=== PATIENT | female | born 1955 | race Caucasian/White ===

== ENCOUNTER 2017-04-12 05:27 | Inpatient (IN) | payer OTHER ==
[2017-03-29 11:06] VITALS: BMI 34.0
--- NOTE | 2017-03-29 11:42 | PAT Medication Instructions ---
Service Date Mar 29, 2017. Current Home Medication List Aspirin (Aspirin Ec), 162 MG PO QAM Cranberry (Vaccinium Macrocarp (Cranberry), 15,000 MG PO QAM Tqgcqtcvgdj-Usuuukegmkk-Hsqunl (Move Free Joint Health Ad), 1 TAB PO QAM Imipramine (Tofranil), 25 MG PO QAM Multivitamin (Multivitamin), 1 TAB PO QAM Naproxen (Aleve), 220 MG PO QAM Pravastatin (Pravachol ), 40 MG PO QAM Valsartan/Hctz (Diovan Hct 320MG/12.5MG), 1 TAB PO QAM Medication Instructions For Your Scheduled Surgery - Check with surgeon for instructions: Naproxen (Aleve), 220 MG PO QAM Aspirin (Aspirin Ec), 162 MG PO QAM - Hold the following medications starting 03/30/17: Cranberry (Vaccinium Macrocarp (Cranberry), 15,000 MG PO QAM Zvbguacdwno-Jgawkyesdga-Ydcizo (Move Free Joint Health Ad), 1 TAB PO QAM - Hold the following medications the morning of surgery: Valsartan/Hctz (Diovan Hct 320MG/12.5MG), 1 TAB PO QAM Multivitamin (Multivitamin), 1 TAB PO QAM - Take the following medications the morning of surgery with a sip of water: Imipramine (Tofranil), 25 MG PO QAM Pravastatin (Pravachol ), 40 MG PO QAM If you have any questions please call us at [phone] or [phone] or [phone]
[2017-03-29 12:07] LABS: BASO % 0.5 %; BASO ABS # 0.03 K/uL (0-0.2); COMPLETE YES; EOS % 1.7 %; HEMATOCRIT 43.6 % (37-47); IG% 0.2 %; LYMPH % 30.2 %; LYMPH ABS # 1.98 K/uL (1.2-3.4); MEAN CORPUSCULAR HEMOGLOBIN 30.4 pg (25-34); MEAN CORPUSCULAR HGB CONC 34.2 g/dl (32-36); NEUT % 60.4 %; PLATELET COUNT 307 K/uL (130-400); WHITE BLOOD COUNT 6.56 K/uL (4.8-10.8)
[2017-03-29 12:09] LABS: URINE APPEARANCE CLEAR (CLEAR); URINE BILIRUBIN NEG (NEG); URINE COLOR YELLOW; URINE NITRITE NEG (NEG); URINE SPECIFIC GRAVITY 1.019 (1.000-1.030); UROBILINOGEN NEG (NEG)
[2017-03-29 12:12] LABS: MANUAL MICROSCOPIC REQUIRED? NO; REVIEW REQ? NO
[2017-03-29 12:23] LABS: INR 0.9 (0.9-1.1)
[2017-03-29 12:49] LABS: ESTIMATED AVERAGE GLUCOSE 111 mg/dl; HA1C FLAG Normal (Normal)
--- NOTE | 2017-03-29 13:30 | DIAGNOSTIC IMAGING REPORT ---
CHEST 2 VIEWS ROUTINE HISTORY: Preop. COMPARISON: None. FINDINGS: Small linear densities at the left lung base favor scarring or atelectasis. The lungs are otherwise clear. No pleural effusions. No pneumothorax. The heart is normal in size. IMPRESSION: No acute process. Electronically signed by: Santy Wood M.D. 03/29/2017 1:29 PM Dictated Date/Time: 03/29/2017 1:27 PM
[2017-03-29 13:56] LABS: BUN/CREATININE RATIO 31.8 (10-20); CALCIUM 8.9 mg/dl (8.5-10.1); CREATININE 0.8 mg/dl (0.60-1.20); POTASSIUM 3.9 mmol/L (3.5-5.1)
--- NOTE | 2017-04-11 14:03 | HISTORY & PHYSICAL EXAMINATION ---
DATE OF ADMISSION: 04/12/2017 HISTORY OF PRESENT ILLNESS: The patient is a 61-year-old white female who presents with complaints of ongoing pain about her left knee for left total knee arthroplasty. She has failed attempts at conservative management including physical therapy, anti-inflammatories, relative rest, activity modification and presents for total knee arthroplasty. PAST MEDICAL HISTORY: Consistent with hypertension, hypercholesterolemia. She denies history of diabetes or thyroid disease. FAMILY HISTORY: Otherwise, unremarkable and noncontributory. SOCIAL HISTORY: The patient denies history of smoking, alcohol use or recreational drug use. PAST SURGICAL HISTORY: Significant for previous appendectomy at age 3, tubal ligation at age 25. MEDICATIONS: Include imipramine 25 mg p.o. daily, aspirin 81 mg p.o. daily, pravastatin 40 mg p.o. daily, [id number] mg, hydrochlorothiazide 12.5 mg p.o. daily. REVIEW OF SYSTEMS: Otherwise unremarkable. See history of present illness for pertinent positives. PHYSICAL EXAMINATION: GENERAL: A very pleasant 61-year-old female with the above complaints noted. She has been nonresponsive to conservative therapy. HEENT: Otherwise atraumatic, normocephalic. HEART: Regular at 70 beats per minute. No murmurs are noted. LUNGS: Clear. No rales, rhonchi, or wheezes noted. ABDOMEN: Soft, nontender, nondistended. Bowel sounds are present in all 4 quadrants. RECTAL: No rectal examination was performed. MUSCULOSKELETAL: Consistent with that of DJD bilateral knees with left knee being planned for total knee arthroplasty. IMAGING DATA: Today, patient's x-rays revealed there to be evidence of severe end-stage DJD, subchondral sclerosis, osteophyte formation and subchondral cystic changes. PLAN: Total knee arthroplasty of the left knee; postoperative pain management, DVT prophylaxis, antibiotics as noted above. MTDD
[~2017-04-12] VITALS: Ht 162.6 cm; Wt 91.3 kg
[2017-04-12] VITALS (9 sets, daily range): BP systolic 97–124; BP diastolic 51–81; PULSE 71–99; TEMP 36.4–36.9; O2SAT 95–99; Ht 162.6 cm; Wt 91.3 kg
[~2017-04-12 05:27] MED LIST: ASPI81TA28 PO; CRAN500C2 PO; GLUC1TAB94 PO; IMP/50 PO; MULT-506 PO; NAPR1TAB9 PO; PRAV20TA PO; VALS-10 PO
[2017-04-12] MEDS ORDERED: LACTATED RINGER'S 1000ML 1,000 ML IV SCH (06:00)
[2017-04-12] MEDS ORDERED: LACTATED RINGER'S 1000ML 500 ML IV ONE (06:00)
[2017-04-12] MEDS ORDERED: CEFAZOLIN 2000MG IV PUSH 10 ML IV SCH (06:00)
[2017-04-12] MEDS ORDERED: GABAPENTIN 300 MG CAP PO SCH (06:00)
[2017-04-12] MEDS ORDERED: FAMOTIDINE 20 MG TAB PO SCH (06:00)
[2017-04-12] MEDS ORDERED: CeleBREX 200 MG CAP PO SCH (06:00)
[2017-04-12] MEDS ORDERED: METOCLOPRAMIDE HCL 10 MG TAB PO SCH (06:00)
[2017-04-12] MEDS ORDERED: ACETAMINOPHEN 500 MG TAB PO SCH (06:00)
[2017-04-12] MEDS ORDERED: ROPIVACAINE 5MG/ML 30 ML 150 MG, BUPIVACAINE 0.5% MPF INJ 30 ML, EpINEphrine HCL INJ 0.... INFIL SCH ×8 (06:00)
[2017-04-12] MEDS ORDERED: DEXAMETHASONE 4 MG TAB PO SCH (06:00)
[2017-04-12] MEDS ORDERED: LACTATED RINGER'S 1000ML IV SCH (06:00)
[2017-04-12] MEDS: TRANEXAMIC ACID INJ 1,000 MG in SYRINGE 0 ML IV SCH ×2 (06:30→07:45)
[2017-04-12] MEDS ORDERED: BUPIVACAINE 0.5 % 5 MG/1 ML PF 10ML VIAL ONE (06:31)
[2017-04-12] MEDS ORDERED: ROPIVACAINE 0.5% 5 MG/ML 30 ML VIAL ONE (06:31)
[2017-04-12] MEDS ORDERED: POVIDONE-IODINE OP SOLN 30 ML BTL ONE (07:00)
[2017-04-12] MEDS ORDERED: BACITRACIN 50000 UNIT VIAL ONE (07:00)
[2017-04-12] MEDS ORDERED: ORTHO JOINT ANESTHETIC ONE (07:04)
--- NOTE | 2017-04-12 07:07 | History & Physical Bridge Note ---
H&P Re-Evaluation Bridge Note: I have examined the patient, reviewed the History & Physical and in the interval since the performance of the History & Physical I have noted the following changes of clinical significance: No changes noted
[2017-04-12] MEDS ORDERED: MIDAZOLAM HCL 1 MG/ML 2ML VIAL ONE ×3 (07:33→08:41)
[2017-04-12] MEDS ORDERED: EpHEDrine SULFATE INJ 50 MG/ML AMP IV PRN (07:45)
[2017-04-12] MEDS ORDERED: ATROPINE SULFATE 0.1 MG/ML 5ML SYR IV PRN (07:45)
[2017-04-12] MEDS ORDERED: PHENYLEPHRINE 100MCG/ML 5ML SYR IV PRN (07:45)
[2017-04-12] MEDS ORDERED: HYDROmorphone INJ 2 MG/ML SYR/VIAL IV PRN (07:45)
[2017-04-12] MEDS ORDERED: ONDANSETRON INJ 2 MG/ML 2 ML VIAL IV PRN ×2 (07:45→10:15)
[2017-04-12] MEDS ORDERED: PHENYLEPHRINE HCL INJ 10 MG/ML VIAL ONE (08:35)
[2017-04-12] MEDS ORDERED: FENTANYL CITRATE INJ 50 MCG/1 ML 2 ML VIAL ONE (08:37)
[2017-04-12] MEDS ORDERED: LIDOCAINE HCL 2% 2 ML VIAL (20MG/ML) ONE (08:41)
[2017-04-12] MEDS ORDERED: PROPOFOL IV EMULSION 10 MG/ML 20 ML VIAL IV ONE (08:41)
--- NOTE | 2017-04-12 09:19 | [facility] Operative Report ---
Operative Report Operative Date Apr 12, 2017. Pre-Operative Diagnosis Severe end stage degenerative joint disease, left knee Post-Operative Diagnosis Same as preoperative diagnosis Procedure(s) Performed Total knee arthroplasty, Left, Cemented, Tyler and Nephew utilizing non-block 4 femur 3 tibia 10 Nguyen [address] Hawk Carton Catcher Surgeon(s) Noris Newman PA-C Estimated Blood Loss 5ML Findings Patient presents with severe end-stage DJD of the left knee nonresponse to conservative therapy including injections anti-inflammatories relative rest activity modification viscus supplementation presents for left total knee arthroplasty Specimens A. Left knee bone and tissue Complication(s) None Disposition Recovery Room / PACU Indications Patient presents with severe end-stage DJD with subchondral sclerosis osteophytes marginal osteophytes varus alignment subchondral cystic changes failing times a conservative management for left total knee arthroplasty Description of Procedure After proper prepping and draping of the left lower extremity anterior midline incision was made over the region of the extensor extensor mechanism after meticulous hemostasis was obtained and maintained in subcutaneous tissues a medial parapatellar incision was made The patella was subluxed lateralward the medial lateral gutter were cleaned from any hypertrophic synovitis and scar tissue of the distal femoral block was placed and the distal femoral osteotomy cut was made subsequently the chamfers anterior and posterior osteotomy cuts were made utilizing the 4-in-1 block the tibia was subsequently subluxed anteriorward medial and ateral meniscal remnants were excised in their entirety remnants of the anterior and posterior cruciate ligaments were excised in their entirety excellent exposure of the proximal tibia was obtained the tibial osteotomy guide was placed on the proximal tibial osteotomy cut was made once again the knee was irrigated with copious amounts of sterile saline solution the patella was subsequently everted lateralward thickened scar tissue around the patella was removed the patella was subsequently cut utilizing a freehand technique and was drilled prepared for final preparation and placement of patella socially flexion-extension gaps were checked and the equal and symmetric trials were placed to the appropriate femoral and tibial trials with poly-spacer being placed for equal flexion and extension gaps and full range of motion including extension to 0 and flexion to 140 the trial components after having been taken to recovery range of motion was subsequently removed meticulous hemostasis was obtained and maintained subsequently a knee block injection of joint cocktail including ropivacaine 0.5% 150 mg. Bupivacaine 0.5 % epinephrine 1-200,030 mL's toradol 30 mg dexamethasone 4 mg ketamine 10 mg clonidine 100 micrograms normal saline solution 30 mg was infiltrated into the soft tissues of the posterior knee medial lateral gutters and periosteal synovium special attention was paid to protect neurovascular structures at all times subsequently trial components having been removed the knee was irrigated with sterile saline solution. debris was removed the proximal tibia was subsequently prepared and was made ready for the placement of the tibial component tibial component was also cemented and tamped into position the femoral component was subsequently placed and cemented in the position the patellar component was subsequently cemented in position because hemostasis once again obtained and maintained wound having been thoroughly irrigated with debridement and debridement lavage was performed as well as a medial parapatellar incision closed with #1 Vicryl in interrupted fashion subcutaneous was closed with #2 Vicryl skin was closed with skin clips. PA-C was necessary for prepping and drapping as well as wound closure of deep fascia Sub cutaneous tissue and skin and was necessary for the case. A sterile compressive dressing was placed patient was taken to recovery in stable condition of report dictated by Kenn I attest to the content of the Intraoperative Record and any orders documented therein. Any exceptions are noted below. I attest to the content of the Intraoperative Record and any orders documented therein. Any exceptions are noted below.
[2017-04-12] MEDS ORDERED: PHENYLEPHRINE 100MCG/ML 5ML SYR ONE (09:23)
[2017-04-12] MEDS ORDERED: ONDANSETRON INJ 2 MG/ML 2 ML VIAL ONE (09:25)
--- NOTE | 2017-04-12 10:13 | Anesthesiology Progress Note ---
Anesthesia Post Op Note Date & Time Apr 12, 2017 at 10:13 Vital Signs Pain Intensity: 0 Vital Signs Past 12 Hours Date Time Temp Pulse Resp B/P (MAP) Pulse Ox O2 Delivery O2 Flow Rate FiO2 04/12/17 09:57 36.1 91 22 96/57 98 Nasal Cannula 2 04/12/17 06:41 36.9 82 20 124/51 95 Room Air Notes Mental Status: alert / awake / arousable, participated in evaluation Pt Amnestic to Procedure: Yes Nausea / Vomiting: adequately controlled Pain: adequately controlled Airway Patency, RR, SpO2: stable & adequate BP & HR: stable & adequate Hydration State: stable & adequate Anesthetic Complications: no major complications apparent
[2017-04-12] MEDS ORDERED: MoRPHine SULFATE 4 MG/ML 1 ML CARP\\VIAL IV PRN (10:15)
[2017-04-12] MEDS ORDERED: ALUMINUM/MAGNESIUM/SIMETH (MAALOX MAX) 30 ML UDC PO PRN (10:15)
[2017-04-12] MEDS ORDERED: MoRPHine SULFATE 2 MG/ML CARP IV PRN (10:15)
[2017-04-12] MEDS ORDERED: MAGNESIUM HYDROXIDE SUSP 30 ML UDC PO PRN (10:15)
[2017-04-12] MEDS ORDERED: TRAMADOL HCL 50 MG TAB PO PRN (10:15)
[2017-04-12] MEDS ORDERED: BISACODYL 10 MG SUPP PR PRN (10:15)
--- NOTE | 2017-04-12 10:34 | DIAGNOSTIC IMAGING REPORT ---
L KNEE 1 OR 2 VIEWS ROUTINE HISTORY: 61 years-old Female AP/LATERAL IN PACU LEFT KNEE status post left knee arthroplasty. Left knee osteoarthritis COMPARISON: None available TECHNIQUE: 2 views of the left knee FINDINGS: Postoperative changes compatible with recent left knee total joint arthroplasty and patellar resurfacing. Alignment is satisfactory. No periprosthetic fracture or retained foreign body. Expected postsurgical soft tissue swelling and deep tissue air with surgical drain in place. IMPRESSION: Status post left knee total joint arthroplasty and patellar resurfacing without complication identified. The above report was generated using voice recognition software. It may contain grammatical, syntax or spelling errors. Electronically signed by: Danny Blair M.D. 04/12/2017 10:33 AM Dictated Date/Time: 04/12/2017 10:32 AM
[2017-04-12] MEDS: FERROUS GLUCONATE 324 MG TAB PO SCH ×2 (12:34→17:35)
[2017-04-12] MEDS: D5W AND 1/2NSS + 20MEQ KCL 1,000 ML IV SCH ×2 (12:35→21:55)
[2017-04-12] MEDS: PRAVASTATIN SOD 20 MG TAB PO SCH (12:35)
[2017-04-12] MEDS: VALSARTAN 80 MG TAB PO SCH (12:49)
[2017-04-12] MEDS: IMIPRAMINE HCL 50 MG TAB PO SCH (12:49)
[2017-04-12] MEDS: HYDROCHLOROTHIAZIDE 25 MG TAB PO SCH (12:55)
[2017-04-12] MEDS: KETOROLAC TROMETHAMINE 30 MG/ML VIAL IV. SCH ×2 (13:53→20:21)
[2017-04-12] MEDS: ACETAMINOPHEN 500 MG TAB PO SCH ×2 (13:54→21:55)
[2017-04-12] MEDS: CEFAZOLIN IV 2,000 MG in SYRINGE 0 ML IV SCH (20:21)
[2017-04-12] MEDS: SENNA 8.6 MG TAB PO SCH (20:23)
[2017-04-12] MEDS: DOCUSATE SODIUM 100 MG CAP PO SCH (20:23)
[2017-04-12] MEDS: ASPIRIN 81 MG ECTAB PO SCH (20:24)
[2017-04-13] VITALS (7 sets, daily range): BP systolic 102–118; BP diastolic 58–79; PULSE 72–89; TEMP 36.4–36.7; O2SAT 96–98
[2017-04-13] MEDS: KETOROLAC TROMETHAMINE 30 MG/ML VIAL IV. SCH ×2 (02:02→07:35)
[2017-04-13] MEDS: CEFAZOLIN IV 2,000 MG in SYRINGE 0 ML IV SCH (03:32)
[2017-04-13] MEDS: ACETAMINOPHEN 500 MG TAB PO SCH ×3 (05:54→22:12)
[2017-04-13 07:00] LABS: HEMATOCRIT 36.9 % (37-47); MEAN CELL VOLUME 89.3 fL (80-100); MEAN CORPUSCULAR HEMOGLOBIN 29.3 pg (25-34); MEAN CORPUSCULAR HGB CONC 32.8 g/dl (32-36); MEAN PLATELET VOLUME 11.6 fL (7.4-10.4); PLATELET COUNT 235 K/uL (130-400); RED BLOOD COUNT 4.13 M/uL (4.2-5.4); WHITE BLOOD COUNT 13.94 K/uL (4.8-10.8)
--- NOTE | 2017-04-13 07:17 | Orthopedic Progress Note ---
Orthopedic Progress Note Date of Service Apr 13, 2017. Subjective Post OP Day: 1 (s/p Left TKA) Reports: feeling well, pain controlled w PO medications, Denies: complaints, chest pain, SOB, nausea / vomiting, light headedness, calf pain Objective calves soft nontender, N/V intact, capillary refill less than 2 sec., dressing C /D/I, A&O x3, toes mobile, hemovac drainage (115cc/8 hours) Date Time Temp Pulse Resp B/P (MAP) Pulse Ox O2 Delivery O2 Flow Rate FiO2 04/13/17 03:10 36.6 74 16 102/65 (77) 96 Room Air 04/12/17 23:45 Room Air 04/12/17 23:40 36.6 81 16 99/64 (76) 95 Room Air 04/12/17 19:45 36.6 89 16 110/65 (80) 97 Room Air 04/12/17 16:09 36.6 77 16 97/62 (74) 99 Nasal Cannula 2.0 04/12/17 15:15 Nasal Cannula 2.0 04/12/17 14:04 36.6 99 16 98/59 (72) 99 Nasal Cannula 2.0 04/12/17 12:56 93 16 123/81 (95) 97 Nasal Cannula 2.0 04/12/17 12:13 36.5 71 18 115/71 (86) 98 Nasal Cannula 2.0 04/12/17 11:40 36.4 75 16 117/71 (86) 98 Nasal Cannula 2.0 04/12/17 11:10 36.9 81 16 104/70 (81) 99 Nasal Cannula 2.0 04/12/17 11:10 99 Nasal Cannula 2.0 04/12/17 11:10 Nasal Cannula 2.0 04/12/17 10:55 83 15 104/57 97 Nasal Cannula 2 04/12/17 10:45 85 15 102/54 97 Nasal Cannula 2 04/12/17 10:35 36.1 84 18 112/60 98 Nasal Cannula 2 04/12/17 10:25 90 24 92/59 99 Nasal Cannula 2 04/12/17 10:15 87 15 110/58 99 Nasal Cannula 2 04/12/17 10:05 87 19 108/50 98 Nasal Cannula 2 04/12/17 09:57 36.1 91 22 96/57 98 Nasal Cannula 2 Laboratory Results 24 Hours: Test 04/13/17 06:03 Hematocrit 36.9 % Hemoglobin 12.1 g/dL Assessment & Plan Assessment: POD #1 s/p left TKA -pt/ot -dvt proph with chicho/scd/asa -plan for d/c home with OPPT when stable Discharge Planning Discharge Planning: home with oppt DVT Prophylaxis: TEDs, SCDs, ASA Therapy: Physical Therapy
[2017-04-13 07:24] LABS: BLOOD UREA NITROGEN 26 mg/dl (7-18); BUN/CREATININE RATIO 29.8 (10-20); CARBON DIOXIDE 28 mmol/L (21-32); CHLORIDE 105 mmol/L (98-107); CREATININE 0.88 mg/dl (0.60-1.20); GLUCOSE 122 mg/dl (70-99); SODIUM 138 mmol/L (136-145)
--- NOTE | 2017-04-13 07:32 | Discharge Instructions ---
Discharge Instructions Date of Service Apr 13, 2017. Admission Reason for Admission: Left Knee Osteoarthritis Discharge Discharge Diagnosis / Problem: left TKA Discharge Goals Goal(s): Decrease discomfort, Improve function, Increase independence Activity Recommendations Activity Limitations: as noted below Weightbearing Status: Left weightbearing (as tolerated) . Instructions / Follow-Up Instructions / Follow-Up ACTIVITY RECOMMENDATIONS: SELF CARE INSTRUCTIONS AFTER TOTAL KNEE REPLACEMENT A. You may need to continue a physical therapy program after discharge from the hospital. There are several options available to you. Your doctor will assist you in selecting the best one for you. 1. An out-patient facility 2 to 3 times a week for therapy or home therapy. 2. Continue working on all exercises taught to you in the hospital. Your goals should be to increase bending of your knee to 90 degrees and beyond and to fully straighten your knee. B. You may progress at your own pace from walking with a walker or crutches to a cane; then to no assistive devices. C. Make walking a part of your daily routine. Be up as much as comfortable with rest periods throughout the day. Rest with leg elevation is very important. Use the ice wrap frequently for the first 3-4 weeks. D. There are no restrictions on activities. You may ride in a car, shop, participate in load dispatcher and all social activities. E. Wear the long elastic stockings (MARTINA hose) 20 hours a day for 2 weeks after surgery. They can be removed several times a day for laundering and for a bath. F. You may shower, no tub baths until cleared by your doctor. SPECIAL CARE INSTRUCTIONS: VERY IMPORTANT TO READ AND REVIEW A. There are a few signs you need to watch for after you are home. Call [facility] if you notice any of the followin. Increased severe knee pain. Some pain is expected especially when you exercise. 2. Increased swelling in your leg or knee; pain or swelling of the calf muscle in either lower leg. 3. Any fluid drainage from the incision. 4. Shortness of breath or chest pain. B. Please call [facility] at if you have any concerns or questions about your operation or recovery. The doctor or his nurse will return your call promptly. C. You must take antibiotics before dental work, bladder, bowel or other surgery. Your doctor will provide you with a permanent care to carry describing this precaution. IMPORTANT: * REMEMBER TO TAKE ASPIRIN, 81 MG, TWICE DAILY FOR 4 WEEKS UNLESS OTHERWISE DIRECTED. THIS IS YOUR BLOOD THINNER. * HIGH RISK PATIENTS MAY BE PRESCRIBED A STRONGER BLOOD THINNER. THIS WILL BE PROVIDED AT DISCHARGE. * CALL IF INCREASED PAIN, REDNESS, DRAINAGE OR FEVER GREATER THAT 101. * WEAR MARTINA HOSE 20 HOURS PER DAY FOR 2 WEEKS. * DERMABOND Prineo- This is a mesh tape dressing that is covered with glue. It should remain in place until the incision is properly healed, usually 10-14 days. This dressing is designed to naturally slough off. You may trim the excess mesh tape as it peels off. Incision may be briefly wet in a shower. Dry immediately by blotting with a clean, dry towel. Do not bath or swim until instructed by your doctor. Do not scratch, rub, or pick at the dressing. Do not apply any topical ointments or lotions until dressing is completely removed and/or instructed by your doctor. There may be a small piece of suture material at one end of your incision. Do not pull or trim this. If it is bothersome or catching on clothing, you may cover it with a band-aid. * YOU MAY HAVE A LARGE BAND-AID LIKE DRESSING (SILVERON). THIS WILL REMAIN ON YOUR INCISION FOR 7 DAYS, THEN CAN BE REMOVED. IF INCISION IS LEAKING THROUGH DRESSING, CALL THE OFFICE . FOLLOW UP VISIT: If appointment is not already scheduled: Please call [facility] to make a follow-up appointment for 2 weeks after your surgery at . Current Hospital Diet Patient's current hospital diet: Regular Diet Discharge Diet Recommended Diet: Regular Diet Procedures Procedures Performed: Total knee arthroplasty, Left, Cemented, Tyler and Nephew utilizing non-block 4 femur 3 tibia 10 Nguyen 32 oval patella Pending Studies Studies pending at discharge: no Laboratory Results Hemoglobin A1c Test 03/29/17 11:48 Range/Units Estimated Average Glucose 111 mg/dl Hemoglobin A1c 5.5 4.5-5.6 % Medical Emergencies . Who to Call and When: Medical Emergencies: If at any time you feel your situation is an emergency, please call 911 immediately. . Non-Emergent Contact Non-Emergency issues call your: Primary Care Provider, Surgeon . "Provider Documentation" section prepared by Teddy Bradshaw. . VTE Core Measure Inpt VTE Proph given/why not?: Other Anticoagulation (ASA 81mg po bid x 1 month ), T.E.DMike Stockings, SCD's [place] Drug Monitoring Program Search Results: patient reviewed within database, no issues identified
[2017-04-13] MEDS: D5W AND 1/2NSS + 20MEQ KCL 1,000 ML IV SCH (07:35)
[2017-04-13] MEDS: ASPIRIN 81 MG ECTAB PO SCH ×2 (08:46→20:42)
[2017-04-13] MEDS: MULTIVITAMIN TAB PO SCH (08:46)
[2017-04-13] MEDS: DOCUSATE SODIUM 100 MG CAP PO SCH ×2 (08:46→20:41)
[2017-04-13] MEDS: HYDROCHLOROTHIAZIDE 25 MG TAB PO SCH (08:47)
[2017-04-13] MEDS: VALSARTAN 80 MG TAB PO SCH (08:47)
[2017-04-13] MEDS: PRAVASTATIN SOD 20 MG TAB PO SCH (08:47)
[2017-04-13] MEDS: IMIPRAMINE HCL 50 MG TAB PO SCH (08:48)
[2017-04-13] MEDS: FERROUS GLUCONATE 324 MG TAB PO SCH ×3 (08:49→18:12)
[2017-04-13] MEDS ORDERED: VALSARTAN/HCTZ 320/12.5 MG TAB PO SCH (09:00)
--- NOTE | 2017-04-13 13:30 | Anesthesiology Progress Note ---
Anesthesia Post Op Note Date & Time Apr 13, 2017 at 13:30 Vital Signs Pain Intensity: 0.0 Vital Signs Past 12 Hours Date Time Temp Pulse Resp B/P (MAP) Pulse Ox O2 Delivery O2 Flow Rate FiO2 04/13/17 11:43 36.5 82 16 118/74 (89) 98 Room Air 04/13/17 08:45 79 118/79 (92) 04/13/17 08:24 97 Room Air 04/13/17 07:42 36.4 72 14 104/66 (79) 97 Room Air 04/13/17 07:10 Room Air 04/13/17 03:10 36.6 74 16 102/65 (77) 96 Room Air Notes Mental Status: alert / awake / arousable, participated in evaluation Pt Amnestic to Procedure: Yes Nausea / Vomiting: adequately controlled Pain: adequately controlled Airway Patency, RR, SpO2: stable & adequate BP & HR: stable & adequate Hydration State: stable & adequate Neuraxial Anesthesia: sensory block resolved Anesthetic Complications: no major complications apparent
[2017-04-13] MEDS: SENNA 8.6 MG TAB PO SCH (20:42)
[2017-04-13] MEDS: CeleBREX 200 MG CAP PO SCH (20:42)
[2017-04-13] MEDS: OXYCODONE HCL IR 5 MG TAB (IMMEDIATE RELEASE) PO PRN (22:13)
[2017-04-14] MEDS: OXYCODONE HCL IR 5 MG TAB (IMMEDIATE RELEASE) PO PRN ×3 (03:07→12:21)
[2017-04-14] MEDS: ACETAMINOPHEN 500 MG TAB PO SCH (06:16)
[2017-04-14 07:32] VITALS: BP 122/73; PULSE 78; TEMP 36.4; O2SAT 97
[2017-04-14] MEDS ORDERED: CLB200 PO (08:05)
[2017-04-14] MEDS ORDERED: ONDA8TAB6 PO (08:05)
[2017-04-14] MEDS ORDERED: ASPI81TA28 PO (08:05)
[2017-04-14] MEDS ORDERED: ACET-24 PO (08:05)
[2017-04-14] MEDS ORDERED: SENN-61 PO (08:05)
[2017-04-14] MEDS ORDERED: RXC5 PO (08:05)
[2017-04-14] MEDS: MULTIVITAMIN TAB PO SCH (08:08)
[2017-04-14] MEDS: FERROUS GLUCONATE 324 MG TAB PO SCH ×2 (08:08→12:20)
[2017-04-14] MEDS: IMIPRAMINE HCL 50 MG TAB PO SCH (08:09)
[2017-04-14] MEDS: ASPIRIN 81 MG ECTAB PO SCH (08:09)
[2017-04-14] MEDS: PRAVASTATIN SOD 20 MG TAB PO SCH (08:09)
[2017-04-14] MEDS: DOCUSATE SODIUM 100 MG CAP PO SCH (08:09)
[2017-04-14] MEDS: HYDROCHLOROTHIAZIDE 25 MG TAB PO SCH (08:10)
[2017-04-14] MEDS: CeleBREX 200 MG CAP PO SCH (08:10)
[2017-04-14] MEDS: VALSARTAN 80 MG TAB PO SCH (08:10)
--- NOTE | 2017-04-14 08:11 | Orthopedic Progress Note ---
Orthopedic Progress Note Date of Service Apr 14, 2017. Subjective Post OP Day: 2 Reports: feeling well, Denies: chest pain, SOB, nausea / vomiting, light headedness, calf pain Objective calves soft nontender, N/V intact, capillary refill less than 2 sec., incision C /D/I, A&O x3, toes mobile Date Time Temp Pulse Resp B/P (MAP) Pulse Ox O2 Delivery O2 Flow Rate FiO2 04/14/17 07:32 Room Air 04/14/17 07:32 36.4 78 17 122/73 (89) 97 Room Air 04/14/17 00:18 Room Air 04/13/17 23:05 36.7 89 16 118/58 (78) 96 Room Air 04/13/17 16:00 Room Air 04/13/17 15:05 36.6 86 18 107/64 (78) 96 Room Air 04/13/17 11:43 36.5 82 16 118/74 (89) 98 Room Air 04/13/17 08:45 79 118/79 (92) 04/13/17 08:24 97 Room Air Assessment & Plan Assessment: POD #2 s/p left TKA -pt/ot -dvt proph with chicho/scd/asa -plan for d/c home with OPPT when stable. DC HOME TODAY - pain management. Discharge Planning Discharge Planning: home with oppt DVT Prophylaxis: TEDs, SCDs, ASA Therapy: Physical Therapy
--- NOTE | 2017-04-14 09:21 | DISCHARGE SUMMARY ---
DISCHARGE DIAGNOSIS: Degenerative joint disease, left knee. SECONDARY DIAGNOSES: Hypertension and hypercholesterolemia. CONSULTS: None. COMPLICATIONS: None. PROCEDURE: Left total knee arthroplasty performed by Dr. Hawk on 04/12/2017. BRIEF HISTORY: As dictated in the history and physical. HOSPITAL SUMMARY: The patient was admitted on the above date and had the above-noted surgery performed, which she tolerated well. On her first postoperative day, she was feeling well. Pain was controlled. No complaints. Calves were soft, nontender, and neurovascularly intact. Dressings clean, dry and intact. Toes were mobile. Vital signs were stable. She was afebrile. Hemoglobin was 12.1. She was started on physical therapy protocol and continued on DVT prophylaxis and pain management. By her second postoperative day, she was feeling well and had no complaints. Incision was benign. Toes were mobile. Calves were soft and nontender. Neurovascularly intact. Vital signs were stable. She was afebrile. She is progressing well with physical therapy and it was felt that she could be discharged to home with outpatient PT. For further review, please see chart. LAB AND X-RAY DATA: As per chart. DISCHARGE INSTRUCTIONS: The patient was discharged to home in satisfactory condition on 04/14/2017. DIET: Regular. ACTIVITY: Follow TKA instruction sheets and special care instructions. Weightbearing as tolerated in the left lower extremity and follow up with Dr. Hawk in 2 weeks. The patient is to call for an appointment if one has not been made for you. DISCHARGE MEDICATIONS: Acetaminophen 1000 mg p.o. q. 8 hours for 30 days, Celebrex 200 mg p.o. b.i.d., Zofran 8 mg p.o. q. 8 hours p.r.n. nausea, oxycodone 5-10 mg p.o. q. 4 hours p.r.n., and senna 17.2 mg p.o. at bedtime. Resume home meds as listed and discharge instruction section and continue aspirin 81 mg p.o. b.i.d. for 30 days and then resume regular dosing as before. Stop taking naproxen.
[2017-04-14 09:45] VITALS: BP 122/73; PULSE 78; TEMP 36.4; O2SAT 97
== END 2017-04-14 13:25 | disposition home or self-care (01) | DRG 470 ==
LOC: C.ACU 05:27 → C.3E 06:45 → ENRESERV 10:18 → CMPBEDREQ 11:35
PROVIDERS: ADMIT Orthopaedic Surgery; ATTEND Orthopaedic Surgery
PROC: 0SRD0J9 Replacement of Left Knee Joint with Synthetic Substitute, Cemented, Open Approach (ICD-10-PCS; principal; 2017-04-12 08:30)
DX: M17.12 Unilateral primary osteoarthritis, left knee (principal); I10 Essential (primary) hypertension; E78.00 Pure hypercholesterolemia, unspecified; E66.9 Obesity, unspecified; Z68.34 Body mass index [BMI] 34.0-34.9, adult; Z87.440 Personal history of urinary (tract) infections; Z79.1 Long term (current) use of non-steroidal anti-inflammatories (NSAID); Z79.82 Long term (current) use of aspirin; Z79.899 Other long term (current) drug therapy